=== PATIENT | female | born 1965 | race Caucasian/White ===

== ENCOUNTER 2017-04-02 05:25 | Inpatient (IN) | payer OTHER ==
[~2017-04-02] VITALS: Ht 160 cm; Wt 75.3 kg
[2017-04-02] VITALS (32 sets, daily range): BP systolic 12–129; BP diastolic 58–87; PULSE 58–76; RESP 12–24; Ht 160 cm; Wt 75.3 kg
[2017-04-02] MEDS ORDERED: CEFAZOLIN 2 GM/50 ML (PMX) 50 ML IVPB SCH (06:00)
[2017-04-02] MEDS ORDERED: SUCCINYLCHOLINE CHLORIDE 100 MG/5 ML SYG IV ONE (07:47)
[2017-04-02] MEDS ORDERED: GLYCOPYRROLATE 0.4 MG INJ ONE ×2 (07:47→09:29)
[2017-04-02] MEDS ORDERED: LIDOCAINE 2% (SDV) 5 ML INJ ONE (07:47)
[2017-04-02] MEDS ORDERED: NEOSTIGMINE 3 MG/3 ML SYRINGE ONE (07:47)
[2017-04-02] MEDS ORDERED: PROPOFOL 20 ML ONE (07:47)
[2017-04-02] MEDS ORDERED: ROCURONIUM 50 MG INJ ONE ×2 (07:47→09:29)
[2017-04-02] MEDS ORDERED: MEPERIDINE 100 MG INJ ONE (07:48)
[2017-04-02] MEDS ORDERED: THROMBIN 5000 UNIT VIAL ONE (09:05)
[2017-04-02] MEDS ORDERED: ONDANSETRON 4 MG INJ ONE ×2 (09:20→10:31)
[2017-04-02] MEDS ORDERED: METOCLOPRAMIDE 10 MG INJ ONE (09:20)
[2017-04-02] MEDS ORDERED: BISACODYL (EC) 5 MG TAB PO PRN (10:30)
[2017-04-02] MEDS ORDERED: LABETALOL HCL 20MG INJ IV PRN (10:30)
[2017-04-02] MEDS ORDERED: METOCLOPRAMIDE 10 MG INJ IV PRN (10:30)
[2017-04-02] MEDS ORDERED: hydrALAzine 20 MG INJ IV PRN (10:30)
[2017-04-02] MEDS ORDERED: morphine (1 MG/ML) 10ML SYRINGE IV PRN ×3 (10:30)
[2017-04-02] MEDS ORDERED: OXYCODONE/ACETAMINOPHEN (5/325) TAB PO PRN ×2 (10:30)
[2017-04-02] MEDS ORDERED: FENTAnyl 50 MCG/ML VIAL ONE (10:30)
[2017-04-02] MEDS ORDERED: ONDANSETRON 4 MG INJ IV PRN ×2 (10:30→11:00)
[2017-04-02] MEDS ORDERED: DIPHENHYDRAMINE 50 MG CAP PO PRN (10:30)
[2017-04-02] MEDS ORDERED: HYDROCODONE/APAP (5/325) TAB PO PRN ×2 (10:30)
[2017-04-02] MEDS ORDERED: DIPHENHYDRAMINE 50 MG INJ IV PRN (10:30)
[2017-04-02] MEDS ORDERED: ZOLPIDEM 5 MG TAB PO PRN (10:30)
[2017-04-02] MEDS ORDERED: EPHEDrine SULFATE 50 MG/5 ML SYG IV PRN (10:30)
[2017-04-02] MEDS ORDERED: MEPERIDINE 25 MG INJ IV PRN (10:30)
[2017-04-02] MEDS ORDERED: HYDROmorphONE (0.2 MG/ML) 10ML SYG IV PRN ×3 (10:30)
[2017-04-02] MEDS ORDERED: MEPERIDINE 25 MG INJ ONE (10:30)
[2017-04-02] MEDS ORDERED: FENTAnyl 50 MCG/ML VIAL IV PRN ×3 (10:30)
[2017-04-02] MEDS ORDERED: MIDAZOLAM 1 MG/ML 2 ML INJ IV PRN (10:30)
--- NOTE | 2017-04-02 10:44 | OPR ---
Date/Time of Note Date/Time of Note DATE: 04/02/17 TIME: 10:37 Operative Report Procedure Date: Apr 02, 2017 Preoperative Diagnosis INTRACTABLE PELVIC PAIN AND BLEEDING LARGE MULTIPLE FIBROID UTERUS ANEMIA Postoperative Diagnosis SAME Operation Performed [facility] Surgeon: SHAHRZAD ELAINE MD assistant athletic trainer: ARIELLE PITTMAN M.D. Anesthesia: general Estimated Blood Loss: 100 - 150 ml's Complications: None Pt Condition Post Procedure: stable Disposition: PACU SHAHRZAD ELAINE MD Apr 02, 2017 10:44
[2017-04-02] MEDS ORDERED: KETOROLAC 30 MG INJ ONE (10:46)
[2017-04-02] MEDS: KETOROLAC 30 MG INJ IV SCH ×3 (10:47→22:26)
[2017-04-02] MEDS: LACTATED RINGER'S 1,000 ML IV SCH ×2 (10:49→17:12)
[2017-04-02] MEDS: METOCLOPRAMIDE 10 MG TAB PO SCH ×3 (14:00→23:28)
[2017-04-02] MEDS: CEFAZOLIN 1 GM/50 ML (PMX) 50 ML IVPB SCH ×2 (14:05→21:20)
[2017-04-02] MEDS: HYDROmorphONE 1 MG/ML SYG IV PRN (15:31)
[2017-04-03 00:41] VITALS: BP 122/76; RESP 18
[2017-04-03] MEDS: KETOROLAC 30 MG INJ IV SCH ×4 (04:23→22:14)
[2017-04-03] MEDS: LACTATED RINGER'S 1,000 ML IV SCH (04:24)
[2017-04-03] MEDS: METOCLOPRAMIDE 10 MG TAB PO SCH (05:12)
[2017-04-03] MEDS: CEFAZOLIN 1 GM/50 ML (PMX) 50 ML IVPB SCH (05:13)
[2017-04-03 05:21] LABS: ADD SCAN DIFF NO
[2017-04-03 05:24] LABS: BASOPHILS % 0.2 % (0.0-2.0); EOSINOPHILS % 0.1 % (0.0-7.0); HEMATOCRIT 32.4 % (37.0-47.0); HEMOGLOBIN 10.1 g/dl (12.0-16.0); LYMPHOCYTES # 1.2 10^3/ul (0.8-2.9); LYMPHOCYTES % 12.4 % (15.0-51.0); MEAN CORPUSCULAR HEMOGLOBIN 28.1 pg (29.0-33.0); MEAN CORPUSCULAR HGB CONC 31.2 g/dl (32.0-37.0); MEAN CORPUSCULAR VOLUME 90.3 fl (82.0-101.0); MEAN PLATELET VOLUME 12.5 fl (7.4-10.4); MONOCYTE # 0.9 10^3/ul (0.3-0.9); MONOCYTES % 8.9 % (0.0-11.0); NEUTROPHIL # 7.7 10^3/ul (1.6-7.5); NEUTROPHILS % 78.2 % (39.0-77.0); PLATELET COUNT 151 10^3/UL (140-415); RED BLOOD COUNT 3.59 10^6/ul (4.20-5.40); RED CELL DISTRIBUTION WIDTH 14.1 % (11.5-14.5); WHITE BLOOD COUNT 9.8 10^3/ul (4.8-10.8)
[2017-04-03 05:46] LABS: CREATININE 0.76 mg/dl (0.44-1.00); POTASSIUM 3.9 mmol/L (3.5-5.1)
[2017-04-03 07:34] VITALS: BP 98/58; RESP 20
--- NOTE | 2017-04-03 10:30 | PN ---
Date/Time of Note Date/Time of Note DATE: 04/03/17 TIME: 10:26 Assessment/Plan Lines/Catheters IV Catheter Type (from Nrsg): Peripheral IV Taylor in Place (from Nrsg): Yes Subjective 24 Hr Interval Summary Patient is doing well she had some epigastric pain after she had this morning liquid diet. She has not been ambulating, she is afebrile and her abdomen is with a dressing that is tight so she is encouraged to take a shower and remove the dressing. she needs to walk and ambulate to pass gas. her laboratory testing were examined and found to be within normal. Surgery was explained to her and she agreed and was happy to have had the procedure done. Constitutional: BM, ambulates, flatus, improved, no complaints, urine output Feeding: baseline diet Pain Control: well controlled Detailed Summary Eyes: no complaints ENT: no complaints Respiratory: no complaints Cardiovascular: no complaints Gastrointestinal: no complaints Genitourinary: no complaints Musculoskeletal: no complaints Skin: no complaints Neurologic: no complaints Endocrine: no complaints Lymphatic: no complaints Psychological: nl mood/affect, no complaints Immunologic: no complaints Exam/Review of Systems Vital Signs Vitals Vital Signs Date Time Temp Pulse Resp B/P Pulse Ox O2 Delivery O2 Flow Rate FiO2 04/03/17 07:34 98.3 72 20 98/58 93 04/02/17 20:00 Nasal Cannula 2.0 Intake and Output 04/02/17 04/02/17 04/03/17 15:00 23:00 07:00 Intake Total 2780 ml 650 ml 1310 ml Output Total 220 ml 600 ml 1600 ml Balance 2560 ml 50 ml -290 ml Exam Constitutional: alert, oriented, well developed Psych: nl mood/affect, no complaints Head: atraumatic, normocephalic Eyes: EOMI, nl conjunctiva, nl lids, nl sclera ENMT: mucosa pink and moist, nl external ears & nose, nl lips & teeth, nl nasal mucosa & septum Neck: non-tender, supple Respiratory: clear to auscultation, normal air movement Cardiovascular: nl pulses, regular rate and rhythm Gastrointestinal: nl liver, spleen, non-tender, soft Musculoskeletal: nl extremities to inspection, nl gait and stance Extremities: normal pulses Neurological: SENIOR CLINICAL DATA COORDINATOR II-XII intact, nl mental status, nl speech, nl strength Skin: nl turgor, rash or lesions Lymph: nl lymph nodes Results Result Diagram: 04/03/17 0440 04/03/17 0440 SHAHRZAD ELAINE MD Apr 03, 2017 10:30
[2017-04-03] MEDS ORDERED: METOCLOPRAMIDE (1 MG/ML) IV SYG IV SCH (12:00)
[2017-04-03 20:22] VITALS: BP 133/71; RESP 20
[2017-04-03] MEDS: HYDROmorphONE 1 MG/ML SYG IV PRN (20:29)
[2017-04-04] MEDS: KETOROLAC 30 MG INJ IV SCH ×3 (04:30→17:33)
[2017-04-04 07:40] VITALS: BP 124/73; RESP 18
--- NOTE | 2017-04-04 11:06 | PD.PPDC ---
INPATIENT CARE MANAGER RN Discharge Instruction Condition Patient Condition: Good Diet Diet: Resume Regular Diet Activity/Restrictions Activity: Normal Activity May Shower Restrictions: No Exercising No Lifting No Driving No Sexual Activity Nothing in the Vagina No [place] No Tampons, douche Wound/Drain Care Instructions Wound/Drain Care Instructions: Wash with soap and water Keep clean and dry Follow-up Follow-up with Physician: 2, Week/Weeks Return to clinic for MEDICAL REIMBURSEMENT SPECIALIST Instructions: Fever greater than 101 Chills Worsening abdominal pain Excessive Vaginal Bleeding More than 2 pads per hour Unable to tolerate diet Surgical Instructions: Incisional Drainage Incisional Redness SHAHRZAD ELAINE MD Apr 04, 2017 11:05
--- NOTE | 2017-04-04 13:06 | PREOPHP ---
DATE OF ADMISSION: 04/02/2017 HISTORY OF PRESENT ILLNESS: Patient is coming in surgery on 04/02/2017. This patient is a 51-year-old female 5 para 4 with a last period of 12/08/2016. This patient has a history of a tubal ligation, a breast biopsy and history of menopause. She has been referred to me due to a large uterus that is over the abdominal area, about 16 cm uterus, that is felt suprapubically. She has had no period since February and then she has been having recent periods. She has been having pelvic pain and loss of urine with urgency. The patient had also a tubal ligation with biopsy, cholecystectomy. REVIEW OF SYSTEMS: Noncontributory. SOCIAL HISTORY: There is no history of drugs, drinking or smoking. ALLERGIES: SHE IS NOT ALLERGIC TO ANY MEDICATION. FAMILY HISTORY: Noncontributory. PHYSICAL EXAMINATION: VITAL SIGNS: Stable. Blood pressure is 120/90, pulse is 80, respiration 16. She weighs 170. She is 5 foot 3 inches. HEENT: The head and neck are normal. BREASTS: Soft, nontender. No masses. CHEST: Clear. CARDIAC: Normal sinus rhythm. LUNGS: Clear. ABDOMEN: With a right-sided abdominal mass that is very painful. EXTERNAL GENITALIA: Normal. Atrophic. uterus about 16-week size. Adnexa are nonpalpable. LABORATORY: The patient had an ultrasound that reveals that she has a very large uterus with an endometrium that is only 2 mm and multiple fibroids that are 8.8 cm, 4.4 and 2.8, multiple fibroid uterus and mid ovaries were visualized. The Pap smear was normal. REASON FOR ADMISSION: She is being admitted for a total abdominal hysterectomy, bilateral salpingectomy with preservation of the ovaries due to her age. The patient has been advised of the possible risks and possible complications of the procedure with alternatives and options. Written information was provided. She had no more questions and agreed to go ahead with the procedure with full understanding and no more questions. Dictated By: Bree Lay MD /liliana/maral /Document#: [id number]
--- NOTE | 2017-04-10 10:42 | OPR ---
DATE OF OPERATION: 04/02/2017 SURGEON: Bree Lay MD. RADAR REPAIRER: Aniket Rios MD. ANESTHESIOLOGIST: Dr. Escobar. OPERATION PERFORMED: Total abdominal hysterectomy and bilateral salpingectomy. PREOPERATIVE DIAGNOSES: 1. Intractable pelvic pain and bleeding. 2. Large multiple fibroid uterus. 3. Anemia. POSTOPERATIVE DIAGNOSES: 1. Intractable pelvic pain and bleeding. 2. Large multiple fibroid uterus. 3. Anemia. ANESTHESIA: General. OPERATIVE PROCEDURE: The patient was under general anesthesia and placed in the supine position. The abdomen was prepped and draped and the Taylor catheter was placed in the bladder. A transverse incision going 2 cm up the pubic bone was made of about 10 cm in length. The abdominal cavity was reached. The lower pelvic area was evaluated and a very large multiple fibroids were found, that was brought out of the incision and the dissection was started with the ligature to the ovarian ligament and to the round ligaments. Then, with Metzenbaums a bladder flap was made anteriorly. Skeletonization of the uterine vessels was done on both sides and with the LigaSure both uterine arteries were cauterized and cut. 2 clamps were placed on the Cardinal ligaments at the level of the cervix, and the uterus was cut at the level of the cervix for visualization, this was done with a knife and the specimen was given to the cert pharmacy tech. The stump of the cervix was grabbed with a clamp and the retractor was placed at this time. The OCS retractor was placed and laps were used to retract the bowel. Now we had better visualization. The Cardinal ligaments and uterosacral ligaments were clamped, cut and tied with #1 Vicryl. The posterior vaginal area was entered by dissection with the Kelton scissors. Kochers were placed on the vaginal corners, and the whole cervix was removed. The cervical area was intact after visualization of the stump. The corners of the vagina were sutured with figure of eight sutures with #1 Vicryl. The vagina was closed with interrupted sutures of #1 Vicryl. Hemostasis was visualized in the water and it was good. Both ureters were tracked down and they were found to be with good peristalsis away from our stumps. The ovaries were normal. Both tubes were removed using the LigaSure instrument, and the procedure was finished by removing al the blood that was left over in the abdomen and the cavity was washed again and the saline was aspirated. Surgiflo was placed on the vaginal cuff, and the abdomen was closed using a #2-0 Vicryl suture for peritoneum, #0 PDS loop suture for the fascia, and #2- 0 for the subcutaneous tissue and #3-0 Monocryl subcuticular to the skin with Dermabond and Steri-Strips. The patient tolerated the procedure well and left the OR awake and stable. The sponge count and instrument counts were correct. Intravenous antibiotics were given for prophylaxis. Blood loss was minimal. The urine was clear at the end of the procedure. Dictated By: Bree Lay MD /liliana/kala /Document#: [id number]
== END 2017-04-04 18:00 | disposition home or self-care (01) | DRG 743 ==
LOC: REC 05:25 → MS1 15:10
PROVIDERS: ADMIT Obstetrics & Gynecology; ATTEND Obstetrics & Gynecology
PROC: 0UTC0ZZ Resection of Cervix, Open Approach (ICD-10-PCS; 2017-04-02)
PROC: 0UB70ZZ Excision of Bilateral Fallopian Tubes, Open Approach (ICD-10-PCS; 2017-04-02)
PROC: 0UT90ZZ Resection of Uterus, Open Approach (ICD-10-PCS; principal; 2017-04-02 07:30)
DX: D25.9 Leiomyoma of uterus, unspecified (principal); D64.9 Anemia, unspecified; Z78.0 Asymptomatic menopausal state; Z98.51 Tubal ligation status; Z90.49 Acquired absence of other specified parts of digestive tract
CPT/HCPCS: 80051; 82565; 84520; 85025; 86850; 86900; 86901; 86920; 87086; 88305; J0690; J1170; J1885; J2175; J2405; J2710; J2765; J3010; J7120; J7999

== ENCOUNTER 2018-02-14 14:24 | Outpatient (CLI) | END 2018-02-14 15:06 | disposition home or self-care (01) ==

== ENCOUNTER → 2018-04-03 | Day surgery (SDC) | END | disposition home or self-care (01) ==

== ENCOUNTER 2018-04-04 10:47 | Emergency (ER) | END 2018-04-04 15:34 | disposition home or self-care (01) ==